=== PATIENT | male | born 1970 | race Caucasian/White ===

== ENCOUNTER → 2020-10-22 | Outpatient (CLI) | payer BC ==
[2020-10-22 23:33] LABS: Basophils # (A) 0.05 X 10*3/uL (0.00-0.10); Basophils % (A) 0.6 %; Eosinophils # (A) 0.08 X 10*3/uL (0.04-0.35); HCT 50.4 % (39.6-50.0); HGB 16.4 g/dL (13.0-17.0); MCH 30.6 pg (27.0-32.0); MCHC 32.5 g/dL (32.0-37.0); Mean Platelet Volume 11.5 fL (9.5-12.2); Monocytes # (A) 0.54 X 10*3/uL (0.20-1.00); Monocytes % (A) 6.9 %; Neutrophils # (A) 5.68 X 10*3/uL (1.80-7.70); Neutrophils % (A) 73.2 %; Platelet Count 285 X 10*3/uL (140-440); RBC 5.36 X 10*6/uL (4.40-5.60); RDW 11.9 % (11.5-14.5); WBC 7.77 X 10*3/uL (4.50-10.00)
[2020-10-23 01:24] LABS: Erythrocyte Sedimentation Rate 8 mm/Hr (0-15)
[2020-10-23 18:54] LABS: Uric Acid 7.1 mg/dL (3.7-8.7)
== END | disposition home or self-care (01) ==
LOC: LABWHC1 13:53
PROVIDERS: ATTEND Podiatrist Foot & Ankle Surgery
DX: M00.9 Pyogenic arthritis, unspecified (principal)
CPT/HCPCS: 36415; 84550; 85025; 85652; 86431

== ENCOUNTER 2021-03-22 15:05 | Emergency (ER) | payer OTHER, BC ==
[2021-03-22 16:11] VITALS: BP 153/98; PULSE 51; RESP 18; TEMP 97.7
[2021-03-22] MEDS ORDERED: KETOROLAC 15 MG/ML 1 ML VIAL IM STA (16:29)
[2021-03-22] MEDS ORDERED: ORPHENADRINE 30 MG/ML 2 ML VIAL IM STA (16:29)
--- NOTE | 2021-03-22 17:05 | ED ---
General Adult HPI - General Chief complaint: Back Pain/Injury Stated complaint: [facility]-back injury Time Seen by Provider: 03/22/21 16:14 Source: patient, family Mode of arrival: wheelchair Limitations: no limitations - History of Present Illness Initial comments: 50-year-old male presents to the emergency room for chief complaint of low back pain. 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 States when he twisted he felt a sudden pain in his back. States that it is very painful to stand up straight to walk. Patient denies any pain radiating down his legs. Denies any numbness or tingling in his groin, weakness of his legs, bladder or bowel changes, or fevers. Patient states he has had similar symptoms in the past and had an MRI about a year ago showing a herniated disc however it was not as bad as the pain he is experiencing now.Patient has no other complaints at this time including shortness of breath, chest pain, abdominal pain, nausea or vomiting, headache, or visual changes. - Related Data Home Medications Medication Instructions Recorded Confirmed Amoxicillin/Potassium Clav 1 tab PO Q12HR 03/04/15 03/04/15 [Augmentin 875-125 Tablet] Fluticasone Nasal [place] [Flonase 2 spr EA NOSTRIL DAILY 03/04/15 03/04/15 Nasal [place]] methylPREDNISolone [Medrol Dose 4 mg PO DIRECTED 03/04/15 03/04/15 Pack] Previous Rx's Medication Instructions Recorded Cyclobenzaprine [Flexeril] 10 mg PO TID #15 tab 03/22/21 Ibuprofen [Motrin] 800 mg PO Q8H #20 tab 03/22/21 Allergies Allergy/AdvReac Type Severity Reaction Status Date / Time azithromycin Allergy Unknown Verified 03/22/21 16:11 Review of Systems ROS Statement: Those systems with pertinent positive or pertinent negative responses have been documented in the HPI. ROS Other: All systems not noted in ROS Statement are negative. Past Medical History Past Medical History: No Reported History History of Any Multi-Drug Resistant Organisms: None Reported Past Surgical History: No Surgical Hx Reported Past Psychological History: No Psychological Hx Reported Smoking Status: Never smoker Past Alcohol Use History: Occasional Past Drug Use History: None Reported General Exam Limitations: no limitations General appearance: alert, in no apparent distress Head exam: Present: atraumatic Eye exam: Present: normal appearance, PERRL, EOMI. Absent: scleral icterus, conjunctival injection ENT exam: Present: normal exam, mucous membranes moist Neck exam: Present: normal inspection, full ROM. Absent: tenderness Respiratory exam: Present: normal lung sounds bilaterally. Absent: respiratory distress, wheezes Cardiovascular Exam: Present: regular rate, normal rhythm, normal heart sounds Extremities exam: Present: other (Strength 5 out of 5 bilateral lower extremities. Sensation intact BLE) Course Vital Signs 03/22/21 16:08 Temperature 97.7 F Pulse Rate 51 L Respiratory 18 Rate Blood Pressure 153/98 O2 Sat by Pulse 98 Oximetry Medical Decision Making - Medical Decision Making Vitals are stable. HPI and physical exam as documented. Patient given Toradol and Norflex and did have improvement in symptoms. Patient will be discharged home with Motrin and Flexeril. Patient is a marketing agent. Therefore we will give him this week to follow-up with his doctor for clearance to return back to full duty. He can return for light duty next week at which point muscle relaxer Rx will be finished. Disposition Clinical Impression: Mechanical back pain Disposition: HOME SELF-CARE Condition: Good Instructions (If sedation given, give patient instructions): Acute Low Back Pain (ED) Additional Instructions: Please take medications as directed. Do not drive while taking Flexeril. Follow up with primary care and orthopedics. He may need an MRI. Return to the emergency room for worsening symptoms such as bladder or bowel changes, numbness of groin or buttock, fevers, or weakness of the legs Prescriptions: Cyclobenzaprine [Flexeril] 10 mg PO TID #15 tab Ibuprofen [Motrin] 800 mg PO Q8H #20 tab Is patient prescribed a controlled substance at d/c from ED?: No Referrals: Orion Zimmer MD [Primary Care Provider] - 1-2 days Ashvin Jane MD [STAFF PHYSICIAN] - 1-2 days Martha Nj DO [Doctor of Osteopathic Medicine] - 1-2 days Time of Disposition: 17:21
== END 2021-03-22 17:39 | disposition home or self-care (01) ==
LOC: EC 15:05
DX: M54.59 Other low back pain (principal); Z88.1 Allergy status to other antibiotic agents
CPT/HCPCS: 99283; 96372 ×2; J2360; J1885

== ENCOUNTER → 2021-10-17 | Outpatient (CLI) | payer BC ==
--- NOTE | 2021-10-17 12:56 | CT ---
EXAMINATION TYPE: CT sinus wo con CT DLP: 596.5 mGycm, Automated exposure control for dose reduction was used. DATE OF EXAM: 10/17/2021 7:55 AM COMPARISON: Sinus radiograph 03/04/2015. CLINICAL INDICATION:Male, 50 years old with history of J32.9 CHRONIC SINUSITIS, UNSPECIFIED; CONTRAST: None. TECHNIQUE: Multiple thin axial images were obtained through the paranasal sinuses without the use of IV contrast. Additional coronal and sagittal reformatted images were submitted for evaluation. FINDINGS: Frontal sinuses: Normally developed. Mild mucosal thickening of the left frontal sinus. Right frontal sinus is clear. Frontal Recess: Clear Maxillary Sinuses: Normally developed. Mild mucosal thickening of the right maxillary sinus with mode rate mucosal thickening of the left maxillary sinus with air-fluid level identified. Maxillary Infundibula([facility]): Both are partially opacified with left greater than right. Ethmoid sinuses: Normally developed and aerated. Ethmoidal notch: Supraorbital pneumatization is iden tified. Sphenoid sinuses: Normally developed and aerated. There is sellar sphenoid sinus pneumatization witho ut evidence of dehiscence. No dehiscence of carotid canal. No evidence of optic nerve dehiscence wit hin the sphenoid sinus. No evidence of [place] cells. Sphenoethmoidal recesses: Clear. Nasal septum: Septal deviation to the right. Nasal Turbinates: Within normal limits. Mastoid air cells & middle ears: The air cells are clear. The middle ears are grossly unremarkable. Modified Soft tissues & Brain: Partially seen without gross abnormality. Globes are intact. Other: Cribriform plate demonstrates symmetric Keros classification type 3 cribriform plate. No evidence of bony dehiscence of skull base. Lamina papyracea is intact without evidence of remote orbital fracture or orbital prolapse into the e thmoid sinus. Pneumatization of the nadeen christina. IMPRESSION: Paranasal sinus disease as described above. This is most prominent involving the left maxillary, righ t maxillary, and left frontal sinuses. Partial opacification of the bilateral maxillary infundibula w ith left greater than right.
== END | disposition home or self-care (01) ==
LOC: RADCTMAIN 07:39
PROVIDERS: ATTEND Family Medicine
DX: J34.89 Other specified disorders of nose and nasal sinuses (principal); J32.9 Chronic sinusitis, unspecified
CPT/HCPCS: 70486

== ENCOUNTER 2022-01-23 11:23 | Emergency (ER) | payer BC ==
[2022-01-23] MEDS ORDERED: OXYMETAZOLINE 0.05% NASL SPRAY 1 SPRAY BOTTLE NASAL STA (11:51)
[2022-01-23] MEDS ORDERED: hydrALAZINE HCL 20 MG/ML 1 ML VIAL IVP STA (11:53)
--- NOTE | 2022-01-23 11:53 | ED ---
ENT HPI - General Chief complaint: ENT Stated complaint: Nose bleed Time Seen by Provider: 01/23/22 11:41 Source: patient, RN notes reviewed Mode of arrival: ambulatory Limitations: no limitations - History of Present Illness Initial comments: Patient is a 51-year-old male presenting to the ER with a chief complaint of a nose bleed. Patient reports this began about 30 minutes ago out of his right nostril and soon became bilateral. Clots present. He has used tampons, napkins, and nose clamps to hold pressure, with no success. Patient has a history of getting nose bleeds during the winter. He denies, shortness of breath, blood thinner or blood pressure medication use. - Related Data Home Medications Medication Instructions Recorded Confirmed Amoxicillin/Potassium Clav 1 tab PO Q12HR 03/04/15 03/04/15 [Augmentin 875-125 Tablet] Fluticasone Nasal [place] [Flonase 2 spr EA NOSTRIL DAILY 03/04/15 03/04/15 Nasal [place]] methylPREDNISolone [Medrol Dose 4 mg PO DIRECTED 03/04/15 03/04/15 Pack] Previous Rx's Medication Instructions Recorded Cyclobenzaprine [Flexeril] 10 mg PO TID #15 tab 03/22/21 Ibuprofen [Motrin] 800 mg PO Q8H #20 tab 03/22/21 Allergies Allergy/AdvReac Type Severity Reaction Status Date / Time azithromycin Allergy Unknown Verified 01/23/22 11:40 Review of Systems ROS Statement: Those systems with pertinent positive or pertinent negative responses have been documented in the HPI. ROS Other: All systems not noted in ROS Statement are negative. Past Medical History Past Medical History: No Reported History History of Any Multi-Drug Resistant Organisms: None Reported Past Surgical History: No Surgical Hx Reported Past Psychological History: PTSD Smoking Status: Never smoker Past Alcohol Use History: Occasional Past Drug Use History: None Reported General Exam Limitations: no limitations General appearance: alert, in no apparent distress Head exam: Present: atraumatic, normocephalic, normal inspection Eye exam: Present: normal appearance, PERRL, EOMI. Absent: scleral icterus, conjunctival injection, periorbital swelling ENT exam: Present: other (blood bilaterally nares ) Neck exam: Present: normal inspection. Absent: tenderness, meningismus, lymphadenopathy Respiratory exam: Present: normal lung sounds bilaterally. Absent: respiratory distress, wheezes, rales, rhonchi, stridor Cardiovascular Exam: Present: regular rate, normal rhythm, normal heart sounds. Absent: systolic murmur, diastolic murmur, rubs, gallop, clicks GI/Abdominal exam: Present: soft, normal bowel sounds. Absent: distended, tenderness, guarding, rebound, rigid Extremities exam: Present: normal inspection, full ROM, normal capillary refill. Absent: tenderness, pedal edema, joint swelling, calf tenderness Back exam: Present: normal inspection Neurological exam: Present: alert, oriented X3, CN II-XII intact Psychiatric exam: Present: normal affect, normal mood Skin exam: Present: warm, dry, intact, normal color. Absent: rash Course Vital Signs 01/23/22 01/23/22 11:38 12:45 Temperature 97.2 F L 98.1 F Pulse Rate 72 68 Respiratory 20 18 Rate Blood Pressure 192/112 206/108 O2 Sat by Pulse 96 98 Oximetry Medical Decision Making - Medical Decision Making Patient is a 51-year-old male presenting to the emergency department with a chief complaint of nosebleed. Patient found to be hypertensive with a BP 192/112. Patient given hydralazine. Afrin spray admistered. bleeding stopped before Afrin spray. Patient advised follow-up with PCP for blood pressure re check. Patient never had initial blood pressure the past. Recurrent nose bleeds in which she seen ENT. Disposition Clinical Impression: Epistaxis Disposition: HOME SELF-CARE Condition: Stable Instructions (If sedation given, give patient instructions): Nosebleed (ED) Additional Instructions: Please have your blood pressure recheck. Use Afrin nose spray if recurrent bleeds.Please return to the Emergency Department if symptoms worsen or any other concerns. Is patient prescribed a controlled substance at d/c from ED?: No Referrals: Orion Zimmer MD [Primary Care Provider] - 1-2 days Time of Disposition: 13:29
[2022-01-23 13:05] VITALS: RESP 18; TEMP 98.1
[2022-01-23 13:30] VITALS: BP 160/100; PULSE 85
== END 2022-01-23 13:39 | disposition home or self-care (01) ==
LOC: EC 11:23
DX: R04.0 Epistaxis (principal); Z88.1 Allergy status to other antibiotic agents
CPT/HCPCS: 99283; 96374; J0360

== ENCOUNTER → 2022-06-26 | Outpatient (CLI) | payer OTHER ==
--- NOTE | 2022-06-26 12:05 | CT ---
EXAMINATION TYPE: CT chest wo con DATE OF EXAM: 06/26/2022 COMPARISON: NONE HISTORY: BREATHING ISSUES X18 YEARS. Chronic cough. CT DLP: 584.30 mGycm. Automated Exposure Control for Dose Reduction was Utilized. TECHNIQUE: CT scan of the thorax is performed without IV contrast. FINDINGS: LUNGS: The lungs are grossly clear, there is no concerning parenchymal mass or nodule identified. T here is no pleural effusion or pneumothorax seen. The tracheobronchial tree is patent. MEDIASTINUM: Lack of IV contrast is noted to limit evaluation for mediastinal and especially hilar ad enopathy. There are no definitive greater than 1 cm mediastinal lymph nodes. No cardiomegaly or per icardial effusion is seen. OTHER: Visualized liver is slightly hypodense relative to spleen consistent with mild diffuse fatty i nfiltration. IMPRESSION: No significant acute or chronic pulmonary process.
== END | disposition home or self-care (01) ==
LOC: RADCTMAIN 10:51
DX: R05.3 Chronic cough (principal)
CPT/HCPCS: 71250

== ENCOUNTER 2022-07-28 10:30 | Day surgery (SDC) | payer OTHER ==
[2022-07-26 14:40] VITALS: BMI 34.4
[2022-07-28] MEDS: LACTATED RINGERS 1,000 ML IV SCH ×2 (11:00→11:38)
[2022-07-28 11:08] VITALS: TEMP 96.9
[2022-07-28] MEDS ORDERED: PROPOFOL 10 MG/ML 20 ML VIAL IV ONE (11:39)
--- NOTE | 2022-07-28 11:55 | P.PCN ---
Date of Procedure: 07/28/22 Procedure(s) Performed: BRIEF HISTORY: Patient is a 51-year-old pleasant white male scheduled for an elective colonoscopy as a part of screening for colon cancer. PROCEDURE PERFORMED: Colonoscopy with snare polypectomy. PREOPERATIVE DIAGNOSIS: Screening for colon cancer. IV sedation per Anesthesia. PROCEDURE: After informed consent was obtained, the patient, was brought into the endoscopy unit. IV sedation was administered by Anesthesia under continuous monitoring. Digital rectal examination was normal. Initially the Olympus CF-160 flexible video colonoscope was then inserted in the rectum, gradually advanced into the cecum without any difficulty. Careful examination was performed as the scope was gradually being withdrawn. Ileocecal valve and the appendiceal orifice were visualized and appeared normal. Prep was excellent. Mucosa of the cecum, ascending colon, transverse colon, appeared normal. The descending colon there was a 1 cm polyp that was removed by snare polypectomy. Scattered left sided diverticulosis seen. Rest of descending colon, sigmoid colon, and rectum appeared normal. Retroflexion was performed in the rectum and no lesions were seen. The patient tolerated the procedure well. IMPRESSION: 1 cm descending colon polyp status post polypectomy Scattered sigmoid diverticulosis RECOMMENDATIONS: Findings of this examination were discussed with the patient as well as his family. He was advised to follow with the biopsy results and if the biopsy results, can have a repeat colonoscopy in 3 years.
[2022-07-28 12:23] VITALS: BP 136/80; PULSE 50; RESP 20
== END 2022-07-28 12:30 | disposition home or self-care (01) ==
LOC: ORWHC2ENDO 10:30
PROVIDERS: ATTEND Internal Medicine Gastroenterology
DX: Z12.11 Encounter for screening for malignant neoplasm of colon (principal); D12.4 Benign neoplasm of descending colon; K57.30 Diverticulosis of large intestine without perforation or abscess without bleeding; I10 Essential (primary) hypertension; G47.33 Obstructive sleep apnea (adult) (pediatric); N40.0 Benign prostatic hyperplasia without lower urinary tract symptoms; F32.A Depression, unspecified; Z91.040 Latex allergy status; Z79.899 Other long term (current) drug therapy
CPT/HCPCS: 88305; 45385; J2704

== ENCOUNTER 2023-01-23 08:46 | Emergency (ER) | payer OTHER ==
[2023-01-23 08:55] VITALS: RESP 18; TEMP 98
--- NOTE | 2023-01-23 09:17 | ED ---
Back Pain HPI - General Chief Complaint: Back Pain/Injury Stated Complaint: pain in lower back Time Seen by Provider: 01/23/23 09:06 Source: patient, RN notes reviewed, old records reviewed Limitations: no limitations - History of Present Illness Initial Comments: 52-year-old male presents emergency Department with chief complaints of lower back pain. Patient states that he has chronic back pain states he sees Dr. Mullins has had multiple MRIs. Patient has known herniated disc. Patient states that yesterday he felt his hands become wet and he was unsure why. He states he went to the bathroom that point in noted have stool, urine within his underwear. Patient states she no sensation of this. Patient states he did have some numbness and pain that was in his right leg and pelvic region. Patient states that he has had numbness or pain in his leg before but never prior incontinence. Patient states that he uses inversion table which seemed to alleviate some of his symptoms other than the increasing back pain from his normal baseline. Patient states he has no difficulty urinating or abnormal bowel movements today. Patient has no abdominal pain patient denies any new falls, unilateral leg weakness. Patient states she did see his PCP late last night in which they did discuss possibility of cauda equina. He contacted his orthopedic physician's office who advised him come emergency department as they were unable to see him until February. - Related Data Home Medications Medication Instructions Recorded Confirmed Escitalopram [Lexapro] 10 mg PO DAILY 07/26/22 07/28/22 Losartan Potassium 100 mg PO DAILY 07/26/22 07/28/22 Tamsulosin [Flomax] 0.4 mg PO DAILY 07/26/22 07/28/22 Testosterone Cypionate 200 mg IM Q14D 07/26/22 07/28/22 [Depo-Testosterone] Previous Rx's Medication Instructions Recorded predniSONE 50 mg PO DAILY #5 tab 01/23/23 Allergies Allergy/AdvReac Type Severity Reaction Status Date / Time azithromycin Allergy Chest Pain Verified 01/23/23 08:51 Latex, Natural Rubber Allergy Rash/Hives Verified 01/23/23 08:51 Review of Systems ROS Statement: Those systems with pertinent positive or pertinent negative responses have been documented in the HPI. ROS Other: All systems not noted in ROS Statement are negative. Past Medical History Past Medical History: No Reported History History of Any Multi-Drug Resistant Organisms: None Reported Past Surgical History: No Surgical Hx Reported Past Psychological History: PTSD Smoking Status: Never smoker Past Alcohol Use History: Occasional General Exam Limitations: no limitations General appearance: alert, in no apparent distress Head exam: Present: atraumatic, normocephalic, normal inspection Eye exam: Present: normal appearance, PERRL, EOMI. Absent: scleral icterus, conjunctival injection, periorbital swelling ENT exam: Present: normal exam, normal oropharynx, mucous membranes moist Neck exam: Present: normal inspection, full ROM. Absent: tenderness, meningismus, lymphadenopathy Respiratory exam: Present: normal lung sounds bilaterally. Absent: respiratory distress, wheezes, rales, rhonchi, stridor Cardiovascular Exam: Present: regular rate, normal rhythm, normal heart sounds. Absent: systolic murmur, diastolic murmur, rubs, gallop, clicks GI/Abdominal exam: Present: soft, normal bowel sounds. Absent: distended, tenderness, guarding, rebound, rigid Extremities exam: Present: normal inspection, full ROM, normal capillary refill, other (Lower extremity strength equal bilaterally, no vascular intact). Absent: tenderness, pedal edema, joint swelling, calf tenderness Back exam: Present: full ROM (Moderate discomfort), tenderness, paraspinal tenderness, vertebral tenderness Neurological exam: Present: reflexes normal. Absent: motor sensory deficit Course Vital Signs 01/23/23 01/23/23 08:48 11:30 Temperature 98 F Pulse Rate 80 61 Respiratory 18 18 Rate Blood Pressure 137/100 132/91 O2 Sat by Pulse 98 97 Oximetry - Reevaluation(s) Reevaluation #1: 01/23/23 09:14 Orthopedics is contacted at this point after evaluation. Medical Decision Making - Medical Decision Making Was pt. sent in by a medical professional or institution (, PA, ASSOCIATE DIRECTOR DATA [employer]LY[employer], urgent care, hospital, or long term...) When possible be specific @ -Orthopedics Did you speak to anyone other than the patient for history (EMS, parent, family, police, friend...)? What history was obtained from this source @ -No Did you review nursing and triage notes (agree or disagree)? Why? @ -I reviewed and agree with nursing and triage notes Were old charts reviewed (outside hosp., previous admission, EMS record, old EKG, old radiological studies, urgent care reports/EKG's, long term records)? Report findings @ -No old charts were reviewed Differential Diagnosis (chest pain, altered mental status, abdominal pain women, abdominal pain men, vaginal bleeding, weakness, fever, dyspnea, syncope, headache, dizziness, GI bleed, back pain, seizure, CVA, palpatations, mental health, musculoskeletal)? @ -nDifferential Back Pain: Strain, zoster, cauda equina syndrome, epidural abscess, vertebral osteomyelitis, discitis, fracture, subluxation, disc herniation, DJD, spinal stenosis, dissection, AAA, pancreatitis, peptic ulcer disease, pyelonephritis, kidney stone, this is not meant to be an all-inclusive list.able EKG interpreted by me (3pts min.). @ -None X-rays interpreted by me (1pt min.). @ -None done CT interpreted by me (1pt min.). @ -None done U/S interpreted by me (1pt. min.). @ -None done What testing was considered but not performed or refused? (CT, X-rays, U/S, labs)? Why? @ -Consider CT, MRI though patient's had recent imaging and after discussion with orthopedics felt not necessary What meds were considered but not given or refused? Why? @ -None Did you discuss the management of the patient with other professionals (vania curry i.e. , NARESH, ASSOC[employer], lab, RT, psych nurse, director social service, maintenance aide, teacher, neighborhood conservation officer, lining caser)? Give summary @ -Orthopedics associate Carly/Robin on-call discuss case with Dr. Nj and felt patient is stable for discharge and follow-up next week at an earlier appoi ntment he is return if he develops any new symptoms Was smoking cessation discussed for >3mins.? @ -No Was critical care preformed (if so, how long)? @ -No Were there social determinants of health that impacted care today? How? (Homelessness, low income, unemployed, alcoholism, drug addiction, transportat ion, low edu. Level, literacy, decrease access to med. care, senior care, rehab)? @ -No Was there de-escalation of care discussed even if they declined (Discuss DNR or withdrawal of care, Hospice)? DNR status @ -No What co-morbidities impacted this encounter? (DM, HTN, Smoking, COPD, CAD, Cancer, CVA, ARF, Chemo, Hep., AIDS, mental health diagnosis, sleep apnea, morbid obesity)? @ -None Was patient admitted / discharged? Hospital course, mention meds given and route, prescriptions, significant lab abnormalities, going to OR and other pertinent info. @ -Discharged patient is case discussed with orthopedics and felt that he is not at risk for cauda equina at this time we discussed very strict return parameters given his symptoms that happened yesterday is now resolved. Patient was discharged on steroids as recommended by orthopedics. Patient agrees to plan and family updated. Undiagnosed new problem with uncertain prognosis? @ -No Drug Therapy requiring intensive monitoring for toxicity (Heparin, Nitro, Insulin, Cardizem)? @ -No Were any procedures done? @ -No Diagnosis/symptom? @ -Lumbar herniated disc Acute, or Chronic, or Acute on Chronic? @ -Acute on chronic Uncomplicated (without systemic symptoms) or Complicated (systemic symptoms)? @ -, Complicated Side effects of treatment? @ -No Exacerbation, Progression, or Severe Exacerbation? @ -No Poses a threat to life or bodily function? How? (Chest pain, [place], AR, pneumonia, PE, COPD, DKA, ARF, appy, cholecystitis, CVA, Diverticulitis, Homicidal, Suicidal, threat to staff... and all critical care pts) @ -No - Lab Data Result diagrams: 01/23/23 09:13 01/23/23 09:13 Lab Results 01/23/23 01/23/23 01/23/23 Range/Units 09:13 09:13 09:13 WBC 5.9 (3.8-10.6) k/uL RBC 5.85 (4.30-5.90) m/uL Hgb 18.0 H (13.0-17.5) gm/dL Hct 52.7 (39.0-53.0) % MCV 90.1 (80.0-100.0) fL MCH 30.8 (25.0-35.0) pg MCHC 34.2 (31.0-37.0) g/dL RDW 13.3 (11.5-15.5) % Plt Count 228 (150-450) k/uL MPV 8.0 Neutrophils % 64 % Lymphocytes % 25 % Monocytes % 6 % Eosinophils % 2 % Basophils % 1 % Neutrophils # 3.8 (1.3-7.7) k/uL Lymphocytes # 1.5 (1.0-4.8) k/uL Monocytes # 0.4 (0-1.0) k/uL Eosinophils # 0.1 (0-0.7) k/uL Basophils # 0.1 (0-0.2) k/uL PT 11.0 (10.0-12.5) sec INR 1.0 (<1.2) APTT 25.3 (22.0-30.0) sec Sodium 138 (137-145) mmol/L Potassium 4.5 (3.5-5.1) mmol/L Chloride 101 (98-107) mmol/L Carbon Dioxide 25 (22-30) mmol/L Anion Gap 12 mmol/L BUN 13 (9-20) mg/dL Creatinine 0.96 (0.66-1.25) mg/dL Est GFR (CKD-EPI)AfAm >90 (>60 ml/min/1.73 sqM) Est GFR (CKD-EPI)NonAf >90 (>60 ml/min/1.73 sqM) Glucose 112 H (74-99) mg/dL Calcium 9.3 (8.4-10.2) mg/dL Total Bilirubin 1.3 (0.2-1.3) mg/dL AST 28 (17-59) U/L ALT 32 (4-49) U/L Alkaline Phosphatase 63 (38-126) U/L Total Protein 7.7 (6.3-8.2) g/dL Albumin 4.7 (3.5-5.0) g/dL Disposition Clinical Impression: Lumbar radiculopathy, Lumbar disc herniation Disposition: HOME SELF-CARE Condition: Stable Instructions (If sedation given, give patient instructions): Acute Low Back Pain (ED) Additional Instructions: Please return to the Emergency Department if symptoms worsen or any other concerns. Prescriptions: predniSONE 50 mg PO DAILY #5 tab Is patient prescribed a controlled substance at d/c from ED?: No Referrals: Orion Zimmer MD [Primary Care Provider] - 1-2 days Time of Disposition: 11:13
[2023-01-23 09:38] LABS: Basophils # (A) 0.1 k/uL (0-0.2); Basophils % (A) 1 %; Eosinophils # (A) 0.1 k/uL (0-0.7); Eosinophils % (A) 2 %; HCT 52.7 % (39.0-53.0); Lymphocytes # (A) 1.5 k/uL (1.0-4.8); Lymphocytes % (A) 25 %; MCH 30.8 pg (25.0-35.0); MCHC 34.2 g/dL (31.0-37.0); MCV 90.1 fL (80.0-100.0); Monocytes # (A) 0.4 k/uL (0-1.0); Monocytes % (A) 6 %; Neutrophils # (A) 3.8 k/uL (1.3-7.7); Neutrophils % (A) 64 %; Platelet Count 228 k/uL (150-450); RBC 5.85 m/uL (4.30-5.90); RDW 13.3 % (11.5-15.5); WBC 5.9 k/uL (3.8-10.6)
[2023-01-23 09:49] LABS: Partial Thromboplastin Time 25.3 sec (22.0-30.0)
[2023-01-23 09:50] LABS: ALT 32 U/L (4-49); AST 28 U/L (17-59); African American GFR (CKD) >90 (>60 ml/min/1.73 sqM); Albumin 4.7 g/dL (3.5-5.0); Alkaline Phosphatase 63 U/L (38-126); Anion Gap 12 mmol/L; Blood Urea Nitrogen 13 mg/dL (9-20); Calcium 9.3 mg/dL (8.4-10.2); Carbon Dioxide 25 mmol/L (22-30); Chloride 101 mmol/L (98-107); Glucose 112 mg/dL (74-99); Non-African American GFR(CKD) >90 (>60 ml/min/1.73 sqM); Potassium 4.5 mmol/L (3.5-5.1); Sodium 138 mmol/L (137-145); Total Bilirubin 1.3 mg/dL (0.2-1.3); Total Protein 7.7 g/dL (6.3-8.2)
[2023-01-23] MEDS ORDERED: methylPREDNISolone SOD SUCCI 125 MG/2 ML VIAL IV STA (11:12)
[2023-01-23 11:52] VITALS: BP 132/91; PULSE 61
== END 2023-01-23 11:30 | disposition home or self-care (01) ==
LOC: EC 08:46
DX: M51.16 Intervertebral disc disorders with radiculopathy, lumbar region (principal); Z91.040 Latex allergy status; Z88.8 Allergy status to other drugs, medicaments and biological substances
CPT/HCPCS: 36415; 80053; 85025; 85610; 85730; 99283; 96374; J2930

== ENCOUNTER → 2023-03-26 | Outpatient (CLI) | payer OTHER ==
[2023-03-26 09:18] LABS: Partial Thromboplastin Time 25.3 sec (22.0-30.0); Prothrombin Time 10.6 sec (10.0-12.5)
[2023-03-26 14:59] LABS: BUN/Creat Ratio 9.17 Ratio (12.00-20.00); Calcium 9.5 mg/dL (8.7-10.3); Carbon Dioxide 28.5 mmol/L (21.6-31.8); Chloride 104 mmol/L (96-109); Glucose 108 mg/dL (70-110); Potassium 5.2 mmol/L (3.5-5.5); Sodium 142 mmol/L (135-145)
[2023-03-26 15:03] LABS: Basophils # (A) 0.03 X 10*3/uL (0.00-0.10); Basophils % (A) 0.5 %; Eosinophils # (A) 0.11 X 10*3/uL (0.04-0.35); Eosinophils % (A) 1.9 %; HCT 48.6 % (39.6-50.0); HGB 16.2 g/dL (13.0-17.0); Lymphocytes # (A) 1.56 X 10*3/uL (0.90-5.00); Lymphocytes % (A) 27.4 %; MCH 30.3 pg (27.0-32.0); MCHC 33.3 g/dL (32.0-37.0); MCV 90.8 FL (80.0-97.0); Mean Platelet Volume 10.8 FL (9.5-12.2); Monocytes # (A) 0.56 X 10*3/uL (0.20-1.00); Monocytes % (A) 9.8 %; NRBC Per 100 WBC 0 X 10*3/uL (0.00-0.01); Neutrophils # (A) 3.42 X 10*3/uL (1.80-7.70); Platelet Count 222 X 10*3/uL (140-440); RBC 5.35 X 10*6/uL (4.40-5.60); RDW 12.8 % (11.5-14.5)
[2023-03-26 17:06] LABS: Appearance,Urine Clear (Clear); Bilirubin,Urine Negative (Negative); Blood,Urine Negative (Negative); Color,Urine Yellow (Yellow); Ketones,Urine Negative (Negative); Nitrite,Urine Negative (Negative); PH, Urine 5.5; Specific Gravity,Urine 1.017 (1.001-1.030); Urobilinogen,Urine 0.2 E.U./DL
== END | disposition home or self-care (01) ==
LOC: LABPAT 07:28
PROVIDERS: ATTEND Orthopaedic Surgery Orthopaedic Surgery of the Spine
DX: Z01.812 Encounter for preprocedural laboratory examination (principal); M48.061 Spinal stenosis, lumbar region without neurogenic claudication
CPT/HCPCS: 80048; 81003; 85025; 85610; 85730; 86850; 86900; 86901

== ENCOUNTER → 2023-04-02 | Outpatient (CLI) | payer OTHER ==
--- NOTE | 2023-04-02 08:40 | XR ---
EXAMINATION TYPE: XR chest 2V DATE OF EXAM: 04/02/2023 COMPARISON: None HISTORY: 52-year-old male presurgical evaluation, Z01.818 TECHNIQUE: PA and lateral views FINDINGS: The cardiomediastinal silhouette, aorta, and pulmonary vasculature are within normal limits. Lungs an d pleural spaces are clear. IMPRESSION: No acute cardiopulmonary process.
== END | disposition home or self-care (01) ==
LOC: RADXRMAIN 07:15
PROVIDERS: ATTEND Orthopaedic Surgery Orthopaedic Surgery of the Spine
DX: Z01.818 Encounter for other preprocedural examination (principal)
CPT/HCPCS: 71046

== ENCOUNTER 2023-04-04 08:32 | Day surgery (SDC) | payer BC, OTHER ==
[2023-03-29 13:01] VITALS: BMI 34.4
[~2023-04-04 08:32] MED LIST: DEXAMETHASONE SOD PHOSPHATE 4 MG/ML 1 ML VIAL IV ONE; HYDROmorphone 0.5 MG/0.5 ML SYRINGE IVP PRN; LACTATED RINGERS 1,000 ML IV SCH; ONDANSETRON 4 MG/2 ML VIAL IVP ONE; ceFAZolin 1,000 MG in SODIUM CHLORIDE 0.9% IRRIGATIO 1,000 ML IRRIGATION PRN
[2023-04-04 09:04] VITALS: TEMP 97.8
[2023-04-04] MEDS ORDERED: LIDOCAINE 1% (10MG/ML) FOR IV START INTRADERMA ONE (09:26)
[2023-04-04] MEDS ORDERED: fentaNYL (PF) 50 MCG/ML 2 ML AMP ONE (10:23)
[2023-04-04] MEDS ORDERED: ROCURONIUM 10 MG/ML (5 ML VIAL) IV ONE (10:23)
[2023-04-04] MEDS ORDERED: LIDOCAINE 1% INJ 10MG/ML (20 ML MDV) ONE (10:23)
[2023-04-04] MEDS ORDERED: SUCCINYLCHOLINE CHLORIDE 200 MG/10 ML VIAL IV ONE (10:23)
[2023-04-04] MEDS ORDERED: PROPOFOL 10 MG/ML 20 ML VIAL IV ONE (10:23)
[2023-04-04] MEDS ORDERED: MIDAZOLAM 2 MG/2 ML VIAL ONE (10:23)
[2023-04-04] MEDS ORDERED: HYDROmorphone (PF) 1 MG/ML ONE (10:23)
[2023-04-04] MEDS ORDERED: PHENYLEPHRINE-0.9% NACL SYG 1,000 MCG/10 ML SYRINGE ONE (10:23)
[2023-04-04] MEDS ORDERED: THROMBIN (BOVINE) 5,000 UNIT VIAL TOPICAL ONE (10:55)
[2023-04-04] MEDS ORDERED: GELATIN SPONGE,ABSORB (LARGE) 1 EACH SPONGE TOPICAL ONE (10:55)
[2023-04-04] MEDS ORDERED: LIDOCAINE 0.5%-EPI 1:200,000 50 ML VIAL SQ ONE (10:55)
[2023-04-04] MEDS ORDERED: methylPREDNISolone ACETATE 40 MG/ML 1 ML VIAL MISCELLANE ONE (10:55)
[2023-04-04] MEDS ORDERED: HYDROmorphone 1 MG/ML 1 ML SYRINGE IVP PRN (12:09)
[2023-04-04] MEDS ORDERED: BENZOCAINE/MENTHOL LOZENG 1 EACH LOZENGE MUCOUS MEM PRN (12:09)
[2023-04-04] MEDS ORDERED: HYDROmorphone 0.5 MG/0.5 ML SYRINGE IVP PRN (12:09)
[2023-04-04] MEDS ORDERED: ONDANSETRON 4 MG/2 ML VIAL IVP PRN (12:09)
[2023-04-04] MEDS ORDERED: CYCLOBENZAPRINE 10 MG TAB PO PRN (12:09)
[2023-04-04] MEDS ORDERED: HYDROcodone/APAP 5-325MG 1 EACH TAB PO PRN (12:09)
--- NOTE | 2023-04-04 12:14 | FL ---
EXAMINATION TYPE: FL guidance operating room, XR lumbar spine 1V DATE OF EXAM: 04/04/2023 Comparison: None Clinical History: 52-year-old male Lumbar stenosis Findings: Placement for lumbar laminectomy with Pasia. 1 sec fl .2841 Gycm2 DAP One image submitted. Impression: Intraoperative fluoroscopy as above.
[2023-04-04] MEDS ORDERED: SODIUM CHLORIDE 0.9% 1,000 ML IV SCH (12:15)
--- NOTE | 2023-04-04 12:18 | P.OP ---
Date of Procedure: 04/04/23 Preoperative Diagnosis: Herniated nucleus pulposus L3-4 L4-5, spinal stenosis L3-4 L4-5, neurogenic claudication, lower extremity weakness Postoperative Diagnosis: Same Anesthesia: GETA Pathology: none sent Condition: stable Disposition: PACU Description of Procedure: BRIEF OPERATIVE NOTE Preoperative Diagnosis:Herniated nucleus pulposus L3-4 L4-5, spinal stenosis L3- 4 L4-5, neurogenic claudication, lower extremity weakness Postoperative Diagnosis:Herniated nucleus pulposus L3-4 L4-5, spinal stenosis L3-4 L4-5, neurogenic claudication, lower extremity weakness Procedure: Laminectomy and decompression L3-4 L4-5 with bilateral decompression Discectomy for decompression L3-4 L4-5 Surgeon: Dr. Nj Template Storage Clerk: Fermin INFANTE who is present throughout the entire the case persistence during positioning, dissection, exposure, visualization, and all crucial elements of the case as well as closure. Anesthesia: General anesthesia Estimated blood loss: Approximately 100 cc Complications: None apparent Components implanted: None Disposition: To recovery room in good stable condition. OPERATIVE INDICATIONS The patient has been having issues in their lower back and lower extremities. The patient was having evidence of neurogenic claudication and was having weakness in the bilateral lower extremities. He was found to have significant stenosis centrally and in his neuroforaminal disc herniation at L3-4 and L4-5 he had disc herniation at each of those levels which was contributing to the stenosis as well. His symptoms correlated with many of the findings at his lumbar spine at L3-4 and L4-5. The patient has been through conservative treatment. He is not having any prolonged benefit despite aggressive conservative care. Different treatment options including surgery were explained. The possibility of decompression alone versus the possibility of surgery surgery with fusion was explained and the patient elected proceed with decompression L3-4 L4-5 and discectomy. We discussed various treatment options including surgery, and the patient wishes to proceed with surgery We discussed the risk, patient's alternatives and benefits of surgery including but not limited to, risk of bleeding risk of infection, risk of need for further surgery, risk of decreased, loss of motion, loss of function, nerve damage, paralysis, heart attack, blindness and . OPERATIVE SUMMARY After discussing all the risks, patient alternatives and benefits at length, the patient elected to proceed with surgical intervention, signed informed consent, and presented for their procedure. The patient was seen and examined in the preoperative holding area and the surgical site was marked. The patient was given antibiotics and brought to the operating room. The patient was sedated and intubated by anesthesia in standard fashion. The patient was positioned on to the operating room table in a prone position on the appropriate frame which was well-padded and well molded. We were careful to pad any bony prominences and pressure points. We were careful to maintain the patient's cervical spine and good neutral alignment and position throughout. The patient was prepped and draped in a normal standard fashion. An appropriate timeout and keystone protocol performed. We were able to proceed with the surgery. Fluoroscopy was utilized to establish the appropriate level. The local wound area was infiltrated with local anesthetic. An incision was made at the midline longitudinally over the appropriate levels from L3-5. Dissection was taken down subcutaneously to the level of the fascia which was split midline. Dissection was taken over the lamina. Intraoperative fluoroscopy was taken which showed a marker at the appropriate level at L4-5. With the appropriate level positively confirmed, we were able to proceed with laminectomy. I was able to dissect L3-4 and L4-5 and I started at L4-5 and worked similarly for the laminectomy decompression and then discectomy first at L4-5 and then at L3-4. the wound was copiously irrigated and suctioned dry as had been done periodically throughout the case. I performed a laminectomy with a combination of curettes and a high-speed bur and Kerrison rongeurs. A small medial facetectomy was performed again further access. A partial foraminotomy was also performed. Portions of the ligamentum flavum were taken down to expose the dura and traversing nerve root. I was able to mobilize the traversing nerve root and gain access to the disc space. Note was made of obvious compression from the disc. Protecting the soft tissue structures, a small annulotomy was established. I was able to perform discectomy and remove any extruded disc fragments and any loose fragments from within the disc itself. There is some disc desiccation noThere is evidence of herniation with annular rent at each of the levels. Kameron. I tried to preserve the disc annulus that appeared stable. There were no further extruded fragments noted. There is no evidence of dural tear or leak. Good hemostasis maintained. The wound was copiously irrigated and suctioned dry. Good decompression and discectomy was noted. This was completed first at L4-5 and then L3-4. The peridural area was infiltrated with Depo-Medrol. We were able to proceed with closure. The fascia was closed for a watertight closure. The subcuticular tissue was closed with absorbable suture. The wound was cleaned and dried and dressed with the appropriate dressing. The drapes were broken down. The patient was gently rolled back onto their hospital bed being careful to maintain their cervical spine and good neutral alignment and position. They were woken up by anesthesia, extubated, and brought to the recovery room in good stable condition. The patient will be admitted to the hospital for observation and for appropriate postoperative care, medical management and monitoring. We will continue to fo llow them closely about the postoperative course.
[2023-04-04 12:24] VITALS: RESP 16
[2023-04-04] MEDS ORDERED: LACTATED RINGERS 1,000 ML IV ONE (12:56)
[2023-04-04 13:22] VITALS: BP 135/82
[2023-04-04 13:23] VITALS: PULSE 78
[2023-04-05] MEDS ORDERED: SENNOSIDES-DOCUSATE SODIUM 1 EACH TAB PO SCH (09:00)
[2023-04-06] MEDS ORDERED: IBUPROFEN 600 MG TAB PO SCH (12:15)
== END 2023-04-04 13:51 | disposition home or self-care (01) ==
LOC: OR 08:32
PROVIDERS: ATTEND Orthopaedic Surgery Orthopaedic Surgery of the Spine
DX: M48.062 Spinal stenosis, lumbar region with neurogenic claudication (principal); M51.26 Other intervertebral disc displacement, lumbar region; I10 Essential (primary) hypertension; F41.9 Anxiety disorder, unspecified; F10.90 Alcohol use, unspecified, uncomplicated; J45.909 Unspecified asthma, uncomplicated; G47.33 Obstructive sleep apnea (adult) (pediatric); N40.0 Benign prostatic hyperplasia without lower urinary tract symptoms; F43.10 Post-traumatic stress disorder, unspecified; K21.9 Gastro-esophageal reflux disease without esophagitis; Z88.1 Allergy status to other antibiotic agents; Z79.51 Long term (current) use of inhaled steroids; Z87.891 Personal history of nicotine dependence; Z79.899 Other long term (current) drug therapy; Z91.040 Latex allergy status
CPT/HCPCS: 63047; 63048; 72020; J2250; J0330; J1030; J0690 ×2; J2405; J2001; J3010; J1170; J2704; J2371